=== PATIENT | female | born 1945 | race Caucasian/White ===

== ENCOUNTER → 2018-09-04 | Outpatient (CLI) | payer MEDICARE, OTHER ==
[~2018-09-04] MED LIST: BENA1TAB11 PO; METF500T9 PO; OMEP-110 PO; ROSU10TA PO
[2018-09-04 10:46] LABS: ALBUMIN 3.9 g/dL (3.4-5.0); ANION GAP 5 mmol/L (5-15); CALCIUM 9.3 mg/dL (8.5-10.1); CHLORIDE 105 mmol/L (98-107)
[2018-09-04 10:49] LABS: ALANINE AMINOTRANSFERASE 32 U/L (12-78); ALKALINE PHOSPHATASE 72 U/L (45-117); BILIRUBIN,TOTAL 1.1 mg/dL (0.2-1.0); CREATININE 0.71 mg/dL (0.55-1.02); TOTAL PROTEIN 7.5 g/dL (6.4-8.2)
== END | disposition home or self-care (01) ==
LOC: STAR 09:13
PROVIDERS: ATTEND Surgery
DX: Z01.812 Encounter for preprocedural laboratory examination (principal); C50.812 Malignant neoplasm of overlapping sites of left female breast
CPT/HCPCS: 36415; 80053; 93005

== ENCOUNTER 2018-09-08 14:36 | Day surgery (SDC) | payer MEDICARE, OTHER ==
[~2018-09-08] VITALS: Ht 160 cm; Wt 71.2 kg
[2018-09-08] MEDS ORDERED: LIDOCAINE-MPF 1%, 5ML ONE (15:07)
[2018-09-08] MEDS ORDERED: FENTANYL PF 250 MCG/5ML ONE (15:56)
[2018-09-08] MEDS ORDERED: GLYCOPYRROLATE 0.2MG/1ML, 5ML ONE (16:10)
[2018-09-08] MEDS ORDERED: ONDANSETRON 2MG/ML, 2ML ONE (16:10)
[2018-09-08] MEDS ORDERED: ROCURONIUM 10MG/ML,5ML ONE (16:10)
[2018-09-08] MEDS ORDERED: DEXAMETHASONE 4 MG/ML, 1ML ONE (16:10)
[2018-09-08] MEDS ORDERED: CEFAZOLIN 1,000 MG ONE (16:10)
[2018-09-08] MEDS ORDERED: NEOSTIGMINE 1 MG/ML, 10ML ONE (16:10)
[2018-09-08] MEDS ORDERED: PROPOFOL 10 MG/ML, 20ML ONE (16:10)
[2018-09-08] MEDS ORDERED: LACTATED RINGERS 1,000 ML IV SCH ×2 (16:29→23:45)
[2018-09-08] MEDS ORDERED: ONDANSETRON 2MG/ML, 2ML IVPush STA (16:30)
[2018-09-08] MEDS ORDERED: ACETAMINOPHEN 500 MG TABLET PO STA (16:30)
[2018-09-08] MEDS ORDERED: GABAPENTIN 300 MG CAPSULE PO STA (16:30)
[2018-09-08] MEDS ORDERED: SCOPOLAMINE PATCH, 1.5MG PATCH.TD72 TD STA (16:30)
[2018-09-08] MEDS ORDERED: BUPIVACAINE/PF-EPI 0.5% 1:200K ONE (18:31)
[2018-09-08] MEDS ORDERED: ISOSULFAN BLUE 10 MG/ML, 5ML IV ONE (18:31)
[2018-09-08] MEDS ORDERED: LABETALOL 5MG/ML, 20ML IV PRN (19:00)
[2018-09-08] MEDS ORDERED: PROMETHAZINE 25 MG SUPP PR PRN (19:00)
[2018-09-08] MEDS ORDERED: ONDANSETRON 2MG/ML, 2ML IV PRN (19:00)
[2018-09-08] MEDS ORDERED: MORPHINE SULFATE 4 MG/ML, 1ML IVPush PRN ×2 (19:00→23:45)
[2018-09-08] MEDS ORDERED: PROMETHAZINE 25 MG/ML, 1ML IM PRN ×2 (19:00)
[2018-09-08] MEDS ORDERED: PROMETHAZINE 12.5 MG SUPP PR PRN (19:00)
[2018-09-08] MEDS ORDERED: ACETAMINOPHEN 325 MG TABLET PO PRN (19:00)
[2018-09-08] MEDS ORDERED: MEPERIDINE/PF 25MG/0.5ML IVPush PRN (19:00)
[2018-09-08] MEDS ORDERED: OXYcodone 5 MG/5 ML ORAL.SOL UDC PO PRN (19:00)
[2018-09-08] MEDS ORDERED: PROMETHAZINE 25 MG/ML, 1ML IV PRN (19:00)
[2018-09-08] MEDS ORDERED: ONDANSETRON ODT 8 MG PO PRN (19:00)
[2018-09-08] MEDS ORDERED: hydrALAzine 20 MG/ML, 1ML IV PRN (19:00)
[2018-09-08] MEDS ORDERED: BUPIVACAINE/PF-EPI 0.5% 1:200K INFIL ONE (19:18)
[2018-09-08] MEDS ORDERED: FENTANYL PF 100 MCG/2ML ONE ×2 (20:01→20:41)
[2018-09-08] MEDS ORDERED: ACETAMINOPHEN 650 MG/20.3 ML UDC ONE (20:41)
[2018-09-08] MEDS ORDERED: OXYcodone 5 MG/5 ML ORAL.SOL UDC ONE (20:41)
[2018-09-08] MEDS: FENTANYL PF 100 MCG/2ML IV PRN ×2 (20:47→21:22)
[2018-09-08] MEDS ORDERED: HYDROmorphone 2 MG/ML, 1ML ONE (21:20)
[2018-09-08] MEDS: HYDROmorphone 2 MG/ML, 1ML IVPush PRN ×2 (21:22→21:50)
[2018-09-08] MEDS ORDERED: ONDANSETRON 2MG/ML, 2ML IVPush PRN (23:45)
== END 2018-09-08 23:58 | disposition home or self-care (01) ==
LOC: RAD 14:36 → 4NOR 16:15 → EDSTATUS 18:00 → SDC 23:58
PROVIDERS: ATTEND Surgery
DX: C50.112 Malignant neoplasm of central portion of left female breast (principal); N65.1 Disproportion of reconstructed breast; R59.1 Generalized enlarged lymph nodes; F41.9 Anxiety disorder, unspecified; E11.9 Type 2 diabetes mellitus without complications; I10 Essential (primary) hypertension; K21.9 Gastro-esophageal reflux disease without esophagitis; E03.9 Hypothyroidism, unspecified; Z88.0 Allergy status to penicillin; Z72.0 Tobacco use
CPT/HCPCS: 19301; 19318; 19366; 38525; 38792; 82962; 88307; 88329; A9541; C1729; J0690; J1100; J1170; J2405; J2704; J2710; J3010; J3490; J7120; G0378

== ENCOUNTER → 2018-09-25 | Outpatient (CLI) | payer MEDICARE, OTHER | END | disposition home or self-care (01) | LOC: ROC 08:25 | PROVIDERS: ATTEND Radiology Radiation Oncology | DX: C50.312 Malignant neoplasm of lower-inner quadrant of left female breast (principal) | CPT/HCPCS: G0463 ==

== ENCOUNTER 2018-12-10 08:41 | Outpatient (CLI) | payer MEDICARE, OTHER ==
[~2018-12-10 08:41] MED LIST changes: -ROSU10TA PO; +ROSU10TA2 PO
== END 2018-12-10 23:59 | disposition home or self-care (01) ==
LOC: ROC 08:41
PROVIDERS: ATTEND Radiology Radiation Oncology
DX: Z02.9 Encounter for administrative examinations, unspecified (principal)